=== PATIENT | female | born 1970 | race African-American/Black ===

== ENCOUNTER 2020-02-02 11:54 | Inpatient (IN) ==
[2020-02-02] MEDS ORDERED: Isovue-370 500 ML BOTTLE IVP ONE (12:19)
[2020-02-02 13:23] LABS: Basophils # 0.1 K/mcL (0.0-0.2); Basophils % 0.3 %; Eosinophils # 0.2 K/mcL (0.0-0.6); Hematocrit 40.7 % (35.3-44.9); Hemoglobin 12.5 g/dL (11.5-15.4); Immature Granulocytes % 0.5 % (0-4); Lymphocytes # 2.6 K/mcL (0.6-4.6); Lymphocytes % 13.9 %; Mean Corpuscular HGB Conc 30.7 g/dL (31.6-35.5); Mean Corpuscular Hemoglobin 27.8 pg (28.0-33.3); Mean Corpuscular Volume 90.4 fL (83.0-100.0); Mean Platelet Volume 11.2 fL (9.4-12.4); Monocytes # 0.9 K/mcL (0.0-1.3); Monocytes % 5.1 %; Neutrophils # 14.6 K/mcL (1.6-8.9); Platelet Count 379 K/mcL (140-400); Red Cell Distribution Width 14.9 % (11.5-14.5); Segmented Neutrophils % 79.2 %; White Blood Count 18.4 K/mcL (4.3-11.1)
[2020-02-02] MEDS ORDERED: 0.9 % Sodium Chloride 1,000 ML IVC ONE (13:29)
[2020-02-02 14:04] LABS: BUN/Creatinine Ratio 16 (6-26); Blood Urea Nitrogen 12 mg/dL (6-20); Carbon Dioxide 29 mEq/L (23-29); Chloride 100 mEq/L (98-107); Glucose 127 mg/dL (70-105); Osmolality,Calculated 281 (280-300); Potassium 3.6 mEq/L (3.5-5.1); Sodium 135 mEq/L (136-145); eGFR For African Americans > 60 (> 60); eGFR For Non-African Americans > 60 (> 60)
[2020-02-02] MEDS ORDERED: Dexamethasone 4 MG/ML VIAL IVP ONE (15:00)
[2020-02-02] MEDS ORDERED: Clindamycin 600 MG/50 ML 600 MG/50 ML IV.SOLN IVPB ONE (15:00)
[2020-02-02] MEDS ORDERED: Ampicillin/Sulbactam 3,000 MG in 0.9 % Sodium Chloride Mini Bag 100 ML IVPB ONE (15:04)
[2020-02-02] MEDS ORDERED: Naloxone 0.4 MG/ML INJ IVP PRN (16:18)
[2020-02-02] MEDS ORDERED: *HR* Promethazine 25 MG/ML VIAL IVP PRN (16:18)
[2020-02-02] MEDS ORDERED: Ondansetron ODT 4 MG TAB.RAPDIS SL PRN (16:18)
[2020-02-02] MEDS ORDERED: Dexamethasone 4 MG/ML VIAL IVP SCH (16:45)
[2020-02-02] MEDS ORDERED: Magic Mouthwash 10 ML UD Cup PO SCH (16:45)
[2020-02-02] MEDS: 0.9 % Sodium Chloride 1,000 ML IVC SCH ×3 (17:33→20:25)
[2020-02-02] MEDS ORDERED: Ampicillin/Sulbactam 3,000 MG in 0.9 % Sodium Chloride 100 ML IVPB SCH (18:00)
[2020-02-02] MEDS: tiZANidine 4 MG TABLET PO SCH (20:24)
[2020-02-03] MEDS ORDERED: Ampicillin/Sulbactam 3,000 MG in 0.9 % Sodium Chloride 100 ML IVPB SCH
[2020-02-03] MEDS: Ampicillin/Sulbactam 3,000 MG in 0.9 % Sodium Chloride Mini Bag 100 ML IVPB SCH ×5 (00:16→23:12)
[2020-02-03] MEDS: Dexamethasone 4 MG/ML VIAL IVP SCH ×5 (00:17→23:12)
[2020-02-03] MEDS: 0.9 % Sodium Chloride 1,000 ML IVC SCH (04:17)
[2020-02-03 05:26] LABS: Hematocrit 35.6 % (35.3-44.9); Mean Corpuscular HGB Conc 30.6 g/dL (31.6-35.5); Mean Corpuscular Hemoglobin 28.1 pg (28.0-33.3); Mean Corpuscular Volume 91.8 fL (83.0-100.0); Mean Platelet Volume 10.7 fL (9.4-12.4); Platelet Count 371 K/mcL (140-400); Red Blood Count 3.88 M/mcL (3.82-4.97); White Blood Count 17.4 K/mcL (4.3-11.1)
[2020-02-03 05:27] LABS: Hemoglobin 10.9 g/dL (11.5-15.4)
[2020-02-03 05:44] LABS: BUN/Creatinine Ratio 15 (6-26); Blood Urea Nitrogen 10 mg/dL (6-20); Calcium 7.8 mg/dL (8.6-10.3); Carbon Dioxide 27 mEq/L (23-29); Chloride 105 mEq/L (98-107); Glucose 169 mg/dL (70-105); Osmolality,Calculated 289 (280-300); Potassium 4.4 mEq/L (3.5-5.1); Sodium 138 mEq/L (136-145); eGFR For African Americans > 60 (> 60); eGFR For Non-African Americans > 60 (> 60)
[2020-02-03] MEDS: Valsartan 160 MG TABLET PO SCH (09:09)
[2020-02-03] MEDS: tiZANidine 4 MG TABLET PO SCH ×3 (09:13→20:30)
[2020-02-03] MEDS: hydroCHLOROthiazide 25 MG TABLET PO SCH (09:13)
[2020-02-03] MEDS: Ringers Solution, Lactated 1,000 ML IVC SCH (11:31)
[2020-02-03] MEDS: Magic Mouthwash 10 ML UD Cup PO PRN (11:31)
[2020-02-04 00:50] LABS: Basophils % 0.1 %; Hematocrit 34.6 % (35.3-44.9); Hemoglobin 10.8 g/dL (11.5-15.4); Immature Granulocytes % 1.3 % (0-4); Lymphocytes # 2.6 K/mcL (0.6-4.6); Lymphocytes % 12.6 %; Mean Corpuscular HGB Conc 31.2 g/dL (31.6-35.5); Mean Corpuscular Hemoglobin 28.3 pg (28.0-33.3); Mean Corpuscular Volume 90.6 fL (83.0-100.0); Mean Platelet Volume 10.7 fL (9.4-12.4); Monocytes # 0.5 K/mcL (0.0-1.3); Monocytes % 2.5 %; Platelet Count 396 K/mcL (140-400); Red Blood Count 3.82 M/mcL (3.82-4.97); Red Cell Distribution Width 14.9 % (11.5-14.5); Segmented Neutrophils % 83.5 %; White Blood Count 20.4 K/mcL (4.3-11.1)
[2020-02-04] MEDS: Ringers Solution, Lactated 1,000 ML IVC SCH ×2 (04:30→19:39)
[2020-02-04] MEDS: Magic Mouthwash 10 ML UD Cup PO PRN (04:37)
[2020-02-04] MEDS: Dexamethasone 4 MG/ML VIAL IVP SCH (05:28)
[2020-02-04] MEDS: Ampicillin/Sulbactam 3,000 MG in 0.9 % Sodium Chloride Mini Bag 100 ML IVPB SCH ×3 (05:29→17:08)
[2020-02-04] MEDS: tiZANidine 4 MG TABLET PO SCH ×3 (07:53→20:10)
[2020-02-04] MEDS: hydroCHLOROthiazide 25 MG TABLET PO SCH (07:55)
[2020-02-04] MEDS: Valsartan 160 MG TABLET PO SCH (08:03)
[2020-02-05] MEDS: Ampicillin/Sulbactam 3,000 MG in 0.9 % Sodium Chloride Mini Bag 100 ML IVPB SCH ×5 (00:36→23:54)
[2020-02-05] MEDS: Ringers Solution, Lactated 1,000 ML IVC SCH (01:12)
[2020-02-05 04:29] LABS: Basophils % 0.2 %; Eosinophils % 0.1 %; Hematocrit 35.9 % (35.3-44.9); Immature Granulocytes % 1.3 % (0-4); Lymphocytes # 5.9 K/mcL (0.6-4.6); Lymphocytes % 32.8 %; Mean Corpuscular HGB Conc 30.6 g/dL (31.6-35.5); Mean Corpuscular Hemoglobin 27.4 pg (28.0-33.3); Mean Corpuscular Volume 89.3 fL (83.0-100.0); Mean Platelet Volume 10.8 fL (9.4-12.4); Monocytes % 5.6 %; Platelet Count 421 K/mcL (140-400); Red Blood Count 4.02 M/mcL (3.82-4.97); Red Cell Distribution Width 14.8 % (11.5-14.5); White Blood Count 18.1 K/mcL (4.3-11.1)
[2020-02-05 04:40] LABS: Neutrophils # 10.9 K/mcL (1.6-8.9)
[2020-02-05 04:47] LABS: BUN/Creatinine Ratio 28 (6-26); Blood Urea Nitrogen 19 mg/dL (6-20); Calcium 7.9 mg/dL (8.6-10.3); Carbon Dioxide 25 mEq/L (23-29); Chloride 104 mEq/L (98-107); Glucose 123 mg/dL (70-105); Osmolality,Calculated 288 (280-300); Potassium 3.7 mEq/L (3.5-5.1); Sodium 137 mEq/L (136-145); eGFR For African Americans > 60 (> 60); eGFR For Non-African Americans > 60 (> 60)
[2020-02-05 05:03] LABS: Platelet Estimate Normal (Normal); Smudge Cells Present (Not Present)
[2020-02-05] MEDS: hydroCHLOROthiazide 25 MG TABLET PO SCH (08:02)
[2020-02-05] MEDS: tiZANidine 4 MG TABLET PO SCH ×3 (08:02→20:09)
[2020-02-05] MEDS: Valsartan 160 MG TABLET PO SCH (08:03)
[2020-02-05] MEDS: Magic Mouthwash 10 ML UD Cup PO PRN (11:27)
[2020-02-06 05:04] LABS: Basophils % 0.2 %; Eosinophils # 0.2 K/mcL (0.0-0.6); Eosinophils % 1.3 %; Hematocrit 36.1 % (35.3-44.9); Hemoglobin 11.5 g/dL (11.5-15.4); Immature Granulocytes % 0.9 % (0-4); Lymphocytes # 6.1 K/mcL (0.6-4.6); Mean Corpuscular HGB Conc 31.9 g/dL (31.6-35.5); Mean Platelet Volume 10.8 fL (9.4-12.4); Monocytes # 0.8 K/mcL (0.0-1.3); Monocytes % 5.6 %; Neutrophils # 7.6 K/mcL (1.6-8.9); Platelet Count 413 K/mcL (140-400); Red Cell Distribution Width 14.6 % (11.5-14.5); White Blood Count 14.9 K/mcL (4.3-11.1)
[2020-02-06] MEDS: Ampicillin/Sulbactam 3,000 MG in 0.9 % Sodium Chloride Mini Bag 100 ML IVPB SCH ×3 (05:18→17:49)
[2020-02-06 05:23] LABS: BUN/Creatinine Ratio 20 (6-26); Blood Urea Nitrogen 15 mg/dL (6-20); Calcium 8.2 mg/dL (8.6-10.3); Carbon Dioxide 29 mEq/L (23-29); Chloride 101 mEq/L (98-107); Glucose 121 mg/dL (70-105); Osmolality,Calculated 284 (280-300); Potassium 3.5 mEq/L (3.5-5.1); Sodium 136 mEq/L (136-145); eGFR For African Americans > 60 (> 60); eGFR For Non-African Americans > 60 (> 60)
[2020-02-06 05:54] LABS: Platelet Estimate Normal (Normal); Reactive Lymphocytes Present (Not Present)
[2020-02-06] MEDS: hydroCHLOROthiazide 25 MG TABLET PO SCH (07:51)
[2020-02-06] MEDS: Valsartan 160 MG TABLET PO SCH (07:51)
[2020-02-06] MEDS: tiZANidine 4 MG TABLET PO SCH ×3 (07:51→21:49)
[2020-02-06] MEDS ORDERED: Ibuprofen 400 MG TABLET PO ONE (21:49)
[2020-02-07] MEDS: Ampicillin/Sulbactam 3,000 MG in 0.9 % Sodium Chloride Mini Bag 100 ML IVPB SCH ×2 (00:22→06:02)
[2020-02-07 06:30] VITALS: BP 134/83
[2020-02-07] MEDS: hydroCHLOROthiazide 25 MG TABLET PO SCH (08:02)
[2020-02-07] MEDS: Valsartan 160 MG TABLET PO SCH (08:09)
[2020-02-07] MEDS: tiZANidine 4 MG TABLET PO SCH (08:10)
[2020-02-07 08:44] LABS: Hematocrit 40.3 % (35.3-44.9); Mean Corpuscular HGB Conc 32.3 g/dL (31.6-35.5); Mean Corpuscular Hemoglobin 28.3 pg (28.0-33.3); Mean Corpuscular Volume 87.8 fL (83.0-100.0); Mean Platelet Volume 10.6 fL (9.4-12.4); Platelet Count 492 K/mcL (140-400); Red Blood Count 4.59 M/mcL (3.82-4.97); Red Cell Distribution Width 14.7 % (11.5-14.5)
== END 2020-02-07 10:25 | disposition home or self-care (01) | DRG 133 ==
LOC: 3ANU 11:54 → EMEROOARM 11:54 → SUATTDRO 16:19 → 3ANU 17:15 → SUATTDRO 02-04 14:40
PROVIDERS: ADMIT Family Medicine; ATTEND Internal Medicine